=== PATIENT | male | born 1950 | race Caucasian/White ===

== ENCOUNTER 2018-09-05 12:31 | Emergency (ER) | payer MEDICARE ==
[~2018-09-05] VITALS: Ht 165.1 cm; Wt 98.9 kg
[2018-09-05] MEDS ORDERED: ZYLOPRIM100 MG PO (12:45)
[2018-09-05] MEDS ORDERED: LIPITOR40 MG PO (12:45)
== END 2018-09-05 12:50 | disposition home or self-care (01) ==
LOC: ED 12:31
DX: M79.672 Pain in left foot (principal); M79.671 Pain in right foot